=== PATIENT | female | born 1995 | race Caucasian/White ===

== ENCOUNTER → 2018-06-08 06:05 | Day surgery (SDC) | payer OTHER ==
[~2018-06-08 06:05] MED LIST: Acetaminophen TAB* 325 MG PO PRN; Buffered Lidocaine 0.9% SYRIN* 5 ML/SYR SYRINGE INTRADERM ONE; Famotidine IV* 10 MG/ML 2 ML (20 mg) IV ONE; Famotidine IV* 10 MG/ML 2 ML (20 mg) ONE; Ketorolac INJ* 30 MG/ML 1 ML VIAL ONE; Lidocaine 1% INJ* 10 MG/ML 30 ML SDV ONE; Lidocaine 2% PF * 5 ML VIAL ONE; Midazolam* 1 MG/ML 5 ML VIAL (5 MG) ONE; Morphine VIAL* 10 MG/ML 1 ML VIAL ONE; Naloxone* 0.4 MG/ML 1 ML VIAL IV PRN; OXYTOCIN* 10 UNITS/ML 1 ML VIAL ONE; Ondansetron INJ* 2 MG/ML VIAL ONE; Propofol* 10 MG/ML 20 ML BTL IV PUSH ONE; fentaNYL* 50 MCG/ML 2 ML VIAL (100 MCG VIAL) ONE
[2018-06-08 06:57] LABS: ABS Basophils 0 10^3/ul (0-0.2); ABS Eosinophils 0.2 10^3/ul (0-0.6); ABS Lymphocytes 1.8 10^3/ul (1.0-4.8); ABS Monocytes 0.9 10^3/ul (0-0.8); ABS Neutrophils 10.2 10^3/ul (1.5-7.7); ABS Nucleated RBC 0 10^3/ul; Eosinophil % 1.8 % (0-6); Hematocrit 40 % (35-47); Hemoglobin 13.3 g/dl (12.0-16.0); Lymphocyte % 13.9 % (25-47); Mean Corpuscular HGB Conc 34 g/dl (31-36); Mean Corpuscular Hemoglobin 31 pg (27-31); Mean Corpuscular Volume 93 fL (80-97); Mean Platelet Volume 9.9 um3 (7.4-10.4); Nucleated Red Blood Cells % 0.1; Platelet Count 217 10^3/ul (150-450); Red Blood Count 4.25 10^6/ul (4.00-5.40); Red Cell Distribution Width 13 % (10.5-15); White Blood Count 13.2 10^3/ul (3.5-10.8)
[2018-06-08 08:26] VITALS: BP 102/61
--- NOTE | 2018-06-08 11:44 | OP ---
OPERATIVE REPORT: DATE OF OPERATION: 06/08/18 DATE OF : 89 SURGEON: Elbert Strauss MD ANESTHESIA: Sedation mask anesthesia. PRE-OP DIAGNOSIS: Missed . POST-OP DIAGNOSIS: Missed . OPERATIVE PROCEDURE: D and C. ESTIMATED BLOOD LOSS: 50 cc. SPECIMEN: Includes products of conception. FINDINGS: On exam under anesthesia, uterus was anteverted. Cervix, vagina, vulva appeared normal. DESCRIPTION OF PROCEDURE: The patient identified, procedure identified as D and C. The patient was t aken to the operating room, prepped and draped in the usual fashion in the dorsal lithotomy position under mask anesthesia. Two single-toothed tenaculums were placed on the anterior lip of the cervix. Cervix was easily dilated up to a #31 Crews dilator, a #8 suction curette was inserted using suction curettage. The sharp curette was inserted and further tissue was obtained using the polyp forceps. Most of the placental tissue was removed. The suction was reinserted. No further tissue was obtain ed. A sharp curette was inserted and gritty sensation was felt throughout the circumference. Good h emostasis was verified. All instruments were removed from the vagina and the patient returned to rec overy room in stable condition. All sponge and instruments were correct. [id number]/[facility] #: [id number]
== END | disposition home or self-care (01) ==
LOC: OR 06:05
PROVIDERS: ATTEND Obstetrics & Gynecology
DX: O02.1 Missed abortion (principal)
CPT/HCPCS: 36415; 85025; 86850; 86900; 86901; 88305; J1885; J2250; J2270; J2405; J2590; J2704; J3010

== ENCOUNTER 2019-05-05 18:20 | Inpatient (IN) | payer OTHER ==
[2019-05-05] MEDS ORDERED: Buffered Lidocaine 1% SYRIN* 1 ML/SYRINGE INTRADERM ONE (19:49)
[2019-05-05] MEDS ORDERED: Lactated Ringers 1000 ML Bag* 1,000 ML IV ONE (19:49)
[2019-05-05 19:56] LABS: Hematocrit 36 % (35-47); Mean Corpuscular HGB Conc 33 g/dL (31-36); Mean Corpuscular Hemoglobin 30 pg (27-31); Mean Corpuscular Volume 88 fL (80-97); Mean Platelet Volume 11.2 fL (7.4-10.4); Platelet Count 171 10^3/uL (150-450); Red Blood Count 4.08 10^6 /uL (3.70-4.87); Red Cell Distribution Width 13 % (10-15); White Blood Count 13.9 10^3/uL (3.5-10.8)
[2019-05-05] MEDS ORDERED: Lactated Ringers 1000 ML Bag* 1,000 ML IV SCH (20:00)
[2019-05-05 20:09] LABS: ABS Eosinophils 0.1 10^3/ul (0-0.6); ABS Lymphocytes 1.8 10^3/ul (1.0-4.8); ABS Monocytes 0.8 10^3/ul (0-0.8); ABS Neutrophils 11.1 10^3/ul (1.5-7.7); Eosinophil % 0.4 %; Hematocrit 36 % (35-47); Hemoglobin 12.4 g/dL (12.0-16.0); Lymphocyte % 13.2 %; Mean Corpuscular HGB Conc 34 g/dL (31-36); Mean Corpuscular Hemoglobin 30 pg (27-31); Mean Corpuscular Volume 89 fL (80-97); Mean Platelet Volume 11.3 fL (7.4-10.4); Platelet Count 172 10^3/uL (150-450); Red Blood Count 4.08 10^6 /uL (3.70-4.87); Red Cell Distribution Width 13 % (10-15); White Blood Count 13.9 10^3/uL (3.5-10.8)
[2019-05-05 20:14] LABS: Urine Benzodiazepine Screen None Detected (None Detect); Urine Opiates Screen None Detected (None Detect)
[2019-05-05] MEDS ORDERED: Penicillin G Potassium IV* 5,000,000 UNITS in NS 0.9% 100 ML* 100 ML IVPB ONE (20:15)
--- NOTE | 2019-05-05 20:32 | HP ---
General Information - General Information Maternal Age: 23 Grav: 2 Para: 0 SAB: 1 IEA: 0 Estimated Due Date: 05/06/19 Determined By: LMP Maternal Blood Type and Rh: O Positive - Results this Serology/RPR Result: Non-Reactive Rubella Result: Non-Immune HBsAg Result: Negative HIV Result: Negative GBS Culture Result: Positive Past Medical History Delivery History: See Records - primigravida Pertinent Past Medical History: See Records - hypothyroidism Pertinent Past Surgical History: See Records - D&C Pertinent Family History: Non-Contributory - Antepartal Records Antepartal Records: Reviewed, Complicated by: - hypothyroidism, rubella nonimmune Review of Systems Constitutional: Uncomfortable CV Complaint: No Respiratory: Shortness of Breath: No Gastrointestinal: No Nausea/Vomiting, Normal Bowel Movement Genitourinary: No Dysuria, No Bleeding, No Leaking Fluid Musculoskeletal: No Epigastric Pain, Contractions Neurological: No Headache, No Visual Changes Movement: Normal Exam Allergies/Adverse Reactions: Allergies No Known Allergies Allergy (Verified 06/08/18 06:31) T-98.5, P-81, R-18, BP-120/68 Lab Values - Entire Visit: Laboratory Tests 05/05/19 05/05/19 05/05/19 19:30 19:30 19:30 WBC 13.9 H RBC 4.08 Hgb 12.0 Hct 36 MCV 88 MCH 30 MCHC 33 RDW 13 Plt Count 171 MPV 11.2 H Neut % (Auto) Lymph % (Auto) Dauphin % (Auto) Eos % (Auto) Baso % (Auto) Absolute Neuts (auto) Absolute Lymphs (auto) Absolute Monos (auto) Absolute Eos (auto) Absolute Basos (auto) Absolute Nucleated RBC Nucleated RBC % Urine Opiates Screen None detected Ur Barbiturates Screen None detected Ur Phencyclidine Scrn None detected Ur Amphetamines Screen None detected U Benzodiazepines Scrn None detected Urine Cocaine Screen None detected U Cannabinoids Screen None detected Blood Type O Positive 05/05/19 19:30 WBC 13.9 H RBC 4.08 Hgb 12.4 Hct 36 MCV 89 MCH 30 MCHC 34 RDW 13 Plt Count 172 MPV 11.3 H Neut % (Auto) 80.1 Lymph % (Auto) 13.2 Dauphin % (Auto) 6.0 Eos % (Auto) 0.4 Baso % (Auto) 0.3 Absolute Neuts (auto) 11.1 H Absolute Lymphs (auto) 1.8 Absolute Monos (auto) 0.8 Absolute Eos (auto) 0.1 Absolute Basos (auto) 0.0 Absolute Nucleated RBC 0.0 Nucleated RBC % 0.0 Urine Opiates Screen Ur Barbiturates Screen Ur Phencyclidine Scrn Ur Amphetamines Screen U Benzodiazepines Scrn Urine Cocaine Screen U Cannabinoids Screen Blood Type - Measurements Height: 5 ft 7 in Weight: 68.946 kg Weight in lbs: 152.050603 Body Mass Index (BMI): 23.8 Pre- Weight: 54.431 kg Weight Gained This : 32 lbs and 0 ozs - Exam Breast: Breast Exam Deferred CVA: No CVA Tenderness Extremities: No Edema Heart: Normal Rhythm/Heart Sounds HEENT: No Significant Findings Lungs: Clear Bilaterally Rectal: Rectal Exam Deferred Reflexes: DTR 2+ Thyroid: No Thyromegaly - Abdominal Exam Abdomen Exam: Non-Tender, Fundal Height Consistent with Dates - Ultrasound/Biophysical Profile Ultrasound Status: Not Done Targeted Exam Findings See L&D Outpatient Visit Provider Note for Findings: N/A Estimated Weight: 7# Cervical Exam: 4cm Effacement: 100% Station: +1 Presenting Part: Vertex Membrane Status: Intact Bleeding/Discharge: Bloody Show EFM Findings - External Monitor Findings Baseline Heart Rate: 145 External Monitor Findings: Accelerations Present, No Pattern of Variable or Late Decelerations, Variability Moderate, Baseline Stable Contractions: Regular, Moderate, 45-90 Seconds Contraction Frequency: 2-5 Assessment/Plan - Assessment 23 year old at 39 6/7 weeks gestation in active labor, GBS positive, membranes intact. No evidence of acidemia or chorioamnionitis. - Obstetrical Risk Factors Obstetrical Risk Factors: GBS Positive - Plan Plan: Admit - Anticipate Vaginal Delivery - Date/Time of Admission Date of Admission: 05/05/19 Time of Admission: 19:00
--- NOTE | 2019-05-05 22:12 | PN ---
Progress Note - Progress Note Date of Service: 05/05/19 SOAP: Subjective: Pt utilizing tub for pain relief. Relaxing well in between ctx, moaning and rocking with ctx. , mother, and sister present. Taking regular sips of water. Objective: FHR: 140 per doppler auscultation UCs: every 4 minutes, moderate to strong Initial dose of PCN infused Cervical exam deferred Assessment: Pt coping well. Labor appears to be progressing. No evidence of acidemia. Membranes intact Plan: Will check in with pt in about 1 hour, recheck cervix at that time if desired. Pt aware of options for pain relief.
--- NOTE | 2019-05-05 23:29 | PN ---
Progress Note - Progress Note Date of Service: 05/05/19 SOAP: Subjective: Pt increasingly uncomfortable, coping well, requests use of nitrous oxide Objective: Cervix: 6cm/ 100%/ +1 UCs: 3-4 minutes, strong FHR: Baseline 150/ moderate variability/ + accels/ no decels Assessment: Pt making good progress, coping well. no evidence of acidemia. Plan: Nitrous oxide for labor pain relief. Anticipate .
[2019-05-06] MEDS: Penicillin G Potassium IV* 2,500,000 UNITS in NS 0.9% 100 ML* 100 ML IVPB SCH ×3 (00:27→11:01)
--- NOTE | 2019-05-06 01:49 | PN ---
Progress Note - Progress Note Date of Service: 05/06/19 Note: Pt fatigued with difficulty coping, requests epidural. Anesthesia notified, Dr. Umana at bedside at this time. FHR 145 per doppler. Ctx about every 5 minutes. Cervix 7cm/ 100%/ +1/ vtx. Will consider Pitocin if ctx space out once pt comfortable with anesthesia. Anticipate .
[2019-05-06] MEDS ORDERED: Famotidine TAB* 20 MG PO PRN (02:12)
[2019-05-06] MEDS ORDERED: Phenylephrine 40 MCG/ML SYRINGE IV PUSH PRN ×2 (02:12)
[2019-05-06] MEDS ORDERED: Sodium Citrate/Citric Acid* 15 ML UDC PO PRN (02:12)
[2019-05-06] MEDS ORDERED: Lactated Ringers 1000 ML Bag* 1,000 ML IV ONE (02:12)
[2019-05-06] MEDS ORDERED: Lactated Ringers 1000 ML Bag* 1,000 ML IV SCH ×2 (03:00→09:00)
[2019-05-06] MEDS ORDERED: OBEPIDURAL* 250 ML EPIDURAL SCH (03:00)
--- NOTE | 2019-05-06 03:19 | PN ---
Progress Note - Progress Note Date of Service: 05/06/19 SOAP: Subjective: Pt sleeping comfortably Objective: FHR: baseline 140/ moderate variability/ + accels/ single isolated variable decel UCs:Q8-10 minutes Cervical exam deferred T-98.9, BP-105/75 Assessment: No evidence of acidemia. Ctx have spaced out since epidural. Plan: Initiate low dose Pitocin augmentation. Anticipate .
[2019-05-06] MEDS ORDERED: Oxytocin in LR* 20 UNITS/1,000 ML BAG IVPB SCH ×2 (04:00→09:00)
[2019-05-06] MEDS ORDERED: Ibuprofen TAB* 600 MG ONE (07:52)
[2019-05-06] MEDS ORDERED: Acetaminophen TAB* 325 MG PO PRN (08:12)
[2019-05-06] MEDS ORDERED: Methylergonovine INJ* 0.2 MG/ML 1ML AMP IM ONE (08:12)
[2019-05-06] MEDS ORDERED: Glycerin ADULT SUPP PR PRN (08:12)
[2019-05-06] MEDS ORDERED: Misoprostol TAB* 200 MCG PR ONE (08:12)
--- NOTE | 2019-05-06 09:02 | PROCNOTE ---
[facility] OB: Delivery Note - Delivery A Date of : 05/06/19 Time of : 06:21 Peck Sex: Male Weight at : 3.147 kg Score 1 Minute: 9 Score 5 Minutes: 9 Gestational Age in Weeks and Days at Delivery: 40 Weeks and 0 Days Delivery Method: Spontaneous Vaginal Labor: Spontaneous Did Patient attempt ?: N/A, No Previous Amniotic Fluid: Clear Estimated Blood Loss: 450 Anesthesia/Analgesia: CEI for Labor Delivered By: Roshni Vanessa Nursery Level of Nursery: Regular/Bedside - Perineum Perineal Injury: Abrasion Only - Not Repaired Perineal Repair: None - Events Delivery Events of Note: Pitocin During Labor, Full Course of Antibiotics, Post- Bleeding - Meds Given - Additional Delivery Notes Additional Delivery Notes: Pt admitted to L&D in active labor. Pt progressed steadily, initially using nitrous oxide for pain relief before requesting and receiving an epidural with good pain relief. Pt made steady progress until she began to feel urge to push, at which time presenting part was at introitus. Pt pushed effectively with steady descent. brought to [facility] and then coached through slow, controlled delivery of the head. Compound arm extracted and shoulders then followed without difficulty. placed on maternal abdomen with vigorous cry , good tone, HR> 100. After cord pulsation ceased cord clamped x2 and cut by infant's father. Placenta delivered spontaneously, adal side. Following delivery of placenta, Pitocin started at 250 cc/ hr. Uterus firm with fundal massage but became boggy again quickly. IM methergine administered. Inspection of perineum revealed multiple small hemostatic abrasions, not repaired. Slow trickle of bleeding continued, vaginal inspection showed no lacerations. Cytotec administered MD. Large clots expressed from lower uterine segment, after which time bleeding essentially ceased. Pt and stable at this time , anticipate normal course.
[2019-05-06] MEDS: Docusate CAP* 100 MG PO SCH ×3 (10:09→20:44)
[2019-05-06] MEDS: Dibucaine 1% 28.35 GM TUBE PR PRN (10:10)
[2019-05-06] MEDS: Witch Hazel PAD* JAR TOPICAL PRN (10:10)
[2019-05-06] MEDS: Ibuprofen TAB* 600 MG PO PRN ×2 (14:38→20:44)
[2019-05-07] MEDS: Ibuprofen TAB* 600 MG PO PRN ×3 (04:11→20:35)
[2019-05-07 08:20] LABS: ABS Eosinophils 0.1 10^3/ul (0-0.6); ABS Lymphocytes 2.1 10^3/ul (1.0-4.8); ABS Monocytes 0.8 10^3/ul (0-0.8); ABS Neutrophils 7.4 10^3/ul (1.5-7.7); Eosinophil % 1.2 %; Hematocrit 31 % (35-47); Hemoglobin 10.8 g/dL (12.0-16.0); Lymphocyte % 20.4 %; Mean Corpuscular HGB Conc 35 g/dL (31-36); Mean Corpuscular Hemoglobin 31 pg (27-31); Mean Corpuscular Volume 89 fL (80-97); Mean Platelet Volume 10.8 fL (7.4-10.4); Platelet Count 155 10^3/uL (150-450); Red Blood Count 3.49 10^6 /uL (3.70-4.87); Red Cell Distribution Width 14 % (10-15); White Blood Count 10.5 10^3/uL (3.5-10.8)
[2019-05-07] MEDS ORDERED: Ferrous Gluconate TAB* 324 MG TAB PO SCH (09:00)
[2019-05-07] MEDS ORDERED: Measles, Mumps,Rubella VACC* 0.5 ML/VIAL SUBCUT ONE (09:00)
[2019-05-07] MEDS: Docusate CAP* 100 MG PO SCH ×3 (09:59→20:35)
[2019-05-08] MEDS: Docusate CAP* 100 MG PO SCH (07:42)
[2019-05-08] MEDS: Dibucaine 1% 28.35 GM TUBE PR PRN (07:42)
[2019-05-08] MEDS: Ibuprofen TAB* 600 MG PO PRN (07:42)
[2019-05-08 08:17] VITALS: BP 113/72
[2019-05-08] MEDS ORDERED: Influenza VAC *QUAD* 2019-20* 0.5 ML SYRINGE IM ONE (09:00)
[2019-05-08] MEDS: Witch Hazel PAD* JAR TOPICAL PRN (12:55)
== END 2019-05-08 12:40 | disposition home or self-care (01) | DRG 560 ==
LOC: MCHOBOUT 18:20 → MCHOB 19:09
PROVIDERS: ADMIT Midwife; ATTEND Midwife
PROC: 10E0XZZ Delivery of Products of Conception, External Approach (ICD-10-PCS; principal; 2019-05-06)
PROC: 4A1HXCZ Monitoring of Products of Conception, Cardiac Rate, External Approach (ICD-10-PCS; 2019-05-06)
DX: O99.824 Streptococcus B carrier state complicating childbirth (principal); Z37.0 Single live birth; O99.284 Endocrine, nutritional and metabolic diseases complicating childbirth; E03.9 Hypothyroidism, unspecified; O71.82 Other specified trauma to perineum and vulva; O72.1 Other immediate postpartum hemorrhage; O32.6XX0 Maternal care for compound presentation, not applicable or unspecified; O76 Abnormality in fetal heart rate and rhythm complicating labor and delivery; Z23 Encounter for immunization; Z3A.39 39 weeks gestation of pregnancy
CPT/HCPCS: 36415; 80307; 85025; 85027; 86850; 86900; 86901; 90686; A9270-GY; J2540

== ENCOUNTER 2021-02-07 19:45 | Inpatient (IN) ==
[2021-02-07 23:20] LABS: ABS Eosinophils 0.1 10^3/ul (0-0.6); ABS Lymphocytes 2.7 10^3/ul (1.0-4.8); ABS Monocytes 0.9 10^3/ul (0-0.8); ABS Neutrophils 8.4 10^3/ul (1.5-7.7); Hematocrit 34 % (35-47); Hemoglobin 11.5 g/dL (12.0-16.0); Lymphocyte % 21.9 %; Mean Corpuscular HGB Conc 34 g/dL (31-36); Mean Corpuscular Hemoglobin 31 pg (27-31); Mean Corpuscular Volume 93 fL (80-97); Mean Platelet Volume 10.4 fL (7.4-10.4); Platelet Count 163 10^3/uL (150-450); Red Cell Distribution Width 14 % (10-15); White Blood Count 12.1 10^3/uL (3.5-10.8)
[2021-02-07 23:40] LABS: Urine Benzodiazepine Screen None Detected (None Detect); Urine Cannabinoids Screen None Detected (None Detect); Urine Opiates Screen None Detected (None Detect)
[2021-02-08] MEDS ORDERED: Oxytocin in LR 20 UNITS/1,000 ML BAG IVPB ONE (03:30)
[2021-02-08] MEDS ORDERED: OBEPIDURAL 250 ML EPIDURAL ONE (05:04)
[2021-02-08] MEDS ORDERED: Bupivacaine 0.25% SDV PF 10 ML VIAL INJ ONE (05:28)
[2021-02-08] MEDS ORDERED: Phenylephrine 40 mcg/mL 10mL (400mcg) SYRINGE IV PUSH PRN ×2 (05:57)
[2021-02-08] MEDS ORDERED: Sodium Citrate/Citric Acid LIQ 15 ML UDC PO PRN (05:57)
[2021-02-08] MEDS ORDERED: Lactated Ringers 1000 ml BAG 1,000 ML IV ONE (05:57)
[2021-02-08] MEDS ORDERED: OBEPIDURAL 250 ML EPIDURAL SCH (06:00)
[2021-02-08] MEDS ORDERED: Lactated Ringers 1000 ml BAG 1,000 ML IV SCH ×2 (06:00→09:00)
[2021-02-08] MEDS ORDERED: Witch Hazel PAD JAR TOPICAL PRN (08:14)
[2021-02-08] MEDS ORDERED: Dibucaine 1% OINT 28.35 GM TUBE PR PRN (08:14)
[2021-02-08] MEDS ORDERED: Methylergonovine 0.2 mg AMPULE 1 ml AMP IM ONE (08:15)
[2021-02-08] MEDS ORDERED: Oxytocin in LR 20 UNITS/1,000 ML BAG IVPB SCH (09:00)
[2021-02-08 12:33] LABS: ABS Lymphocytes 1.5 10^3/ul (1.0-4.8); ABS Monocytes 1.4 10^3/ul (0-0.8); ABS Neutrophils 12.9 10^3/ul (1.5-7.7); Eosinophil % 0.1 %; Hematocrit 28 % (35-47); Hemoglobin 9.6 g/dL (12.0-16.0); Lymphocyte % 9.3 %; Mean Corpuscular HGB Conc 34 g/dL (31-36); Mean Corpuscular Hemoglobin 31 pg (27-31); Mean Corpuscular Volume 93 fL (80-97); Mean Platelet Volume 10.7 fL (7.4-10.4); Platelet Count 158 10^3/uL (150-450); Red Blood Count 3.06 10^6 /uL (3.70-4.87); Red Cell Distribution Width 14 % (10-15); White Blood Count 15.8 10^3/uL (3.5-10.8)
[2021-02-09 07:41] VITALS: BP 97/63
[2021-02-09 08:13] LABS: ABS Eosinophils 0.1 10^3/ul (0-0.6); ABS Monocytes 0.7 10^3/ul (0-0.8); ABS Neutrophils 7.9 10^3/ul (1.5-7.7); Eosinophil % 1.1 %; Hematocrit 28 % (35-47); Hemoglobin 9.6 g/dL (12.0-16.0); Lymphocyte % 18.9 %; Mean Corpuscular HGB Conc 35 g/dL (31-36); Mean Corpuscular Hemoglobin 32 pg (27-31); Mean Corpuscular Volume 93 fL (80-97); Mean Platelet Volume 10.2 fL (7.4-10.4); Platelet Count 172 10^3/uL (150-450); Red Blood Count 2.98 10^6 /uL (3.70-4.87); Red Cell Distribution Width 15 % (10-15); White Blood Count 10.8 10^3/uL (3.5-10.8)
== END 2021-02-09 12:40 | disposition home or self-care (01) | DRG 560 ==
LOC: MCHOBOUT 19:45 → MCHOB 22:12
PROVIDERS: ADMIT Midwife; ATTEND Midwife

== ENCOUNTER 2023-08-31 10:10 | Inpatient (IN) ==
[~2023-08-31 10:10] MED LIST changes: -Acetaminophen TAB* 325 MG PO PRN; -Buffered Lidocaine 0.9% SYRIN* 5 ML/SYR SYRINGE INTRADERM ONE; +Buffered Lidocaine 1% SYRIN 1 ml INTRADERM ONE; -Famotidine IV* 10 MG/ML 2 ML (20 mg) IV ONE; -Famotidine IV* 10 MG/ML 2 ML (20 mg) ONE; -Ketorolac INJ* 30 MG/ML 1 ML VIAL ONE; +Lactated Ringers 1000 ml BAG 1,000 ML IV ONE; -Lidocaine 1% INJ* 10 MG/ML 30 ML SDV ONE; +Lidocaine 1% VIAL 10 MG/ML 30 ML VIAL INJ PRN; -Lidocaine 2% PF * 5 ML VIAL ONE; -Midazolam* 1 MG/ML 5 ML VIAL (5 MG) ONE; -Morphine VIAL* 10 MG/ML 1 ML VIAL ONE; -Naloxone* 0.4 MG/ML 1 ML VIAL IV PRN; -OXYTOCIN* 10 UNITS/ML 1 ML VIAL ONE; -Ondansetron INJ* 2 MG/ML VIAL ONE; -Propofol* 10 MG/ML 20 ML BTL IV PUSH ONE; -fentaNYL* 50 MCG/ML 2 ML VIAL (100 MCG VIAL) ONE
[2023-08-31] MEDS ORDERED: Oxytocin in LR 20,000 MILLI.UNIT/1,000 ML BAG IV SCH ×3 (10:15→20:05)
[2023-08-31 11:43] LABS: Rapid COVID-19 Molecular Undetected (Undetected)
[2023-08-31 11:43] LABS: ABS Basophils 0.1 10^3/uL (0.0-0.1); ABS Eosinophils 0.2 10^3/uL (0.0-0.5); ABS Lymphocytes 1.5 10^3/uL (1.0-4.8); ABS Monocytes 0.7 10^3/uL (0.0-0.9); ABS Neutrophils 7.6 10^3/uL (1.5-7.6); ABS Nucleated RBC 0.01 10^3/ul; Eosinophil % 1.8 %; Hematocrit 37.5 % (35-45); Hemoglobin 12.7 g/dL (11.5-14.3); Lymphocyte % 15.3 %; Mean Corpuscular Hemoglobin 31.1 pg (27-33); Mean Corpuscular Volume 91.4 fL (80-97); Mean Platelet Volume 10.3 fL (7.5-11.2); Nucleated Red Blood Cells % 0.1 %/100WBC (0.0-0.8); Platelet Count 180 10^3/uL (150-450); Red Cell Distribution Width 14.3 % (12-17); White Blood Count 10.1 10^3/uL (3.8-11.8)
[2023-08-31 12:17] LABS: Urine Benzodiazepine Screen None Detected (None Detect); Urine Cannabinoids Screen None Detected (None Detect); Urine Opiates Screen None Detected (None Detect)
[2023-08-31 12:26] LABS: Influenza A Molecular Negative (Negative); Influenza B Molecular Negative (Negative)
[2023-08-31] MEDS ORDERED: OBEPIDURAL (200 ML) 200 ML EPIDURAL ONE (14:55)
[2023-08-31] MEDS ORDERED: Lidocaine 1.5% EPI 1:200,000 30 ML SDV ONE (14:55)
[2023-08-31] MEDS: Lactated Ringers 1000 ml BAG 1,000 ML IV SCH ×2 (14:57→15:37)
[2023-08-31] MEDS ORDERED: Lactated Ringers 1000 ml BAG 1,000 ML IV ONE (15:36)
[2023-08-31] MEDS ORDERED: Phenylephrine 40 mcg/mL 10mL (400mcg) SYRINGE IV PUSH PRN ×2 (15:36)
[2023-08-31] MEDS ORDERED: Sodium Citrate/Citric Acid LIQ 15 ML UDC PO PRN (15:36)
[2023-08-31] MEDS ORDERED: Lactated Ringers 1000 ml BAG 1,000 ML IV SCH ×2 (16:00→21:00)
[2023-08-31] MEDS ORDERED: OBEPIDURAL (200 ML) 200 ML EPIDURAL SCH (16:00)
[2023-08-31 16:38] LABS: Urine Appearance Clear; Urine Bilirubin Negative (Negative); Urine Blood Negative (Negative); Urine Color Straw; Urine Glucose Negative (Negative); Urine Ketones Negative (Negative); Urine Nitrite Negative (Negative); Urine Protein Negative (Negative); Urine Specific Gravity 1.006 (1.002-1.030); Urine Urobilinogen Negative (Negative)
[2023-08-31] MEDS ORDERED: Methylergonovine 0.2 mg AMPULE 1 ml AMP ONE (19:33)
[2023-08-31] MEDS ORDERED: Witch Hazel PAD JAR TOPICAL PRN (20:02)
[2023-08-31] MEDS ORDERED: Tetan/Diph/Pertus SYR(Tdap) 0.5 ML SYR(BOOSTRIX) use SYR contains LATEX IM ONE (20:02)
[2023-08-31] MEDS ORDERED: Methylergonovine 0.2 mg AMPULE 1 ml AMP IM ONE (20:02)
[2023-09-01 07:10] LABS: ABS Basophils 0.1 10^3/uL (0.0-0.1); ABS Eosinophils 0.2 10^3/uL (0.0-0.5); ABS Lymphocytes 1.9 10^3/uL (1.0-4.8); ABS Neutrophils 8.7 10^3/uL (1.5-7.6); ABS Nucleated RBC 0.01 10^3/ul; Eosinophil % 1.9 %; Hematocrit 31.2 % (35-45); Hemoglobin 10.7 g/dL (11.5-14.3); Lymphocyte % 15.8 %; Mean Corpuscular Hemoglobin 31.3 pg (27-33); Mean Corpuscular Hgb Conc 34.2 g/dL (31-36); Mean Corpuscular Volume 91.6 fL (80-97); Mean Platelet Volume 10.3 fL (7.5-11.2); Platelet Count 162 10^3/uL (150-450); Red Blood Count 3.41 10^6/uL (3.63-4.92); Red Cell Distribution Width 14.6 % (12-17); White Blood Count 11.8 10^3/uL (3.8-11.8)
[2023-09-01] MEDS: Dibucaine 1% OINT 28.35 GM TUBE PR PRN ×2 (10:10→20:18)
[2023-09-01 20:10] VITALS: BP 102/60
== END 2023-09-01 20:30 | disposition home or self-care (01) | DRG 560 ==
LOC: MCHOBOUT 10:10 → MCHOB 10:15
PROVIDERS: ADMIT Midwife; ATTEND Midwife